=== PATIENT | male | born 1940 | race Caucasian/White ===

== ENCOUNTER 2016-11-01 08:46 | Outpatient (CLI) | END 2016-11-01 08:47 | disposition home or self-care (01) | LOC: LAB 08:46 | PROVIDERS: ATTEND Internal Medicine | DX: E11.42 Type 2 diabetes mellitus with diabetic polyneuropathy (principal); C61 Malignant neoplasm of prostate; Z79.4 Long term (current) use of insulin | CPT/HCPCS: 36415; 83036; 84153 ==